=== PATIENT | male | born 1950 ===

== ENCOUNTER 2018-09-01 05:59 | Day surgery (SDC) | payer OTHER, SELFPAY ==
[2018-08-23 12:39] VITALS: BMI 36.1
[2018-09-01] VITALS (8 sets, daily range): BP systolic 103–143; BP diastolic 54–80; PULSE 63–70; RESP 10–20; TEMP 36–36.8; O2SAT 90–95; BMI 36.3
[2018-09-01] MEDS: LACTATED RINGERS 1,000 ML 42 ML IV ×2 (07:25→09:52)
--- NOTE | 2018-09-01 07:39 | PM.PREOP ---
Pre-operative Note Interval Note History & Physical reviewed/Exam performed by Physician: Yes Changes to H&P: No
[2018-09-01] MEDS: CEFAZOLIN 2 GM/100 ML FROZ.PIGGY IV (07:50)
--- NOTE | 2018-09-01 08:45 | SUR.OPER ---
Beach chair with Maquet shoulder positioner on Skytron bed. Lower body on padded OR bed. Head in foam padded head cradle, secured with straps. Non-operative arm secured <90 degrees abduction. Pillow under knees. Safety belt at thigh. Cloth tape over blanket over lower legs.
--- NOTE | 2018-09-01 08:55 | PM.PROC.1 ---
Procedures Date/Time Date of procedure: 09/01/18 Time of procedure: 07:46 General Procedure description: Ultrasound guided interscalene brachial plexus nerve block for post op pain control after Left shoulder RCR by Dr. Bennett. Procedure done under general anesthesia due to severe right sided Parkinsonian tremors causing motion. Risk and benefits of procedure discussed with patient. ASA monitoring applied to patient, general anesthesia induction. 100% 02 given via ETT. Skin site was prepped with chlorhexidine and allowed to fully dry. Sterile gloves, mask, hat and probe cover were used to maintain sterility. Under ultrasound guidance, a 21ga 50mm Pajunk needle was directed into the interscalene groove (middle/anterior scalenes) near the brachial plexus. After negative aspiration, 20 mL 0.5% ropivicaine and 10mg dexamethasone were injected around brachial plexus .
[2018-09-01] MEDS: BUPIVACAINE 0.5% W/ EPI (PF) VIAL 30 ML INJ (09:01)
[2018-09-01] MEDS: SODIUM CHLORIDE IRRIG SOLUTION 3,000 ML, EPINEPHrine 1 MG IRR (09:02)
--- NOTE | 2018-09-01 09:45 | SUR.OPER ---
Patient's Deep Brain Stimulator turned off before incision at 0807 by anesthesia. It was turned back on at 0943 by anesthesia after the caurtery was unplugged from the cautery machine.
--- NOTE | 2018-09-01 10:29 | P.OP_ITS ---
Operative Date/Time/Diagnoses Date of procedure: 09/01/18 Time of procedure: 08:30 Pre-op diagnosis: Massive rotator cuff tear involving left shoulder Post-op diagnosis: same Procedure & Clinicians Procedure: Arthroscopic debridement of the glenohumeral joint Arthroscopic subacromial decompression and debridement of the subacromial and subdeltoid space Open rotator cuff repair of the subscapularis, supraspinatus, infraspinatus. Same procedure as scheduled: Yes Indications: Massive rotator cuff tear left shoulder Surgeon: [facility] Corporate Account Director: Afshan Gambino Anesthesia Type: General and Peripheral nerve block Operative Notes Findings: Complete tear and retraction of the supraspinatus, infraspinatus, and subscapularis. 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 Previous suture material from repair from many years ago. Some loose bodies anterior to the glenohumeral joint. Degenerative changes to the labrum as well as signs of a previous complete rupture of the biceps tendons. Closure Type: primary Specimen(s): none sent Prosthetic devices, grafts, tissues, transplants, or devices: Speed bridge fixation anchors for the supraspinatus and infraspinatus. Single SwiveLock anchor for the subscapularis Applied: implant(s) Estimated Blood Loss (mL): 5 Blood products transfused: none Procedure in detail: On date of service, Patient was met in the holding area. The operative site was signed and witnessed by the OR staff. The surgeries once again discussed with the patient and any remaining questions they had were answered fully. Patient was taken back to the operating theater and placed on the operating table in a supine position. Great care was taken to ensure that all bony prominences were properly padded. Patient was then placed into the beach chair position. The head and neck were properly positioned and secured. A timeout was performed verifying patient's name, procedure, and the operative site. The upper extremity was then prepped and draped in the normal sterile fashion. Previously, the bony anatomy and portal sites were marked out as well as injected with Marcaine with epinephrine. An 11 blade was used to make an incision in the posterior aspect of the shoulder. The camera was placed, and a diagnostic shoulder scope was performed. Findings listed above. Next under direct visualization, a anterior portal was made. Shaver was brought in and extensive debridement of the glenohumeral joint was performed. Patient had significant amount of degenerative changes to the labral tissue as well as signs of a previous biceps rupture. The residual tissue of the biceps tendon was debrided with a shaver. Once all the degenerative tissue in the glenohumeral joint was removed we then turned our attention to the subacromial space. Next the camera was placed into the subacromial space. A lateral portal was obtained under direct visualization. A combination of the shaver and vapor wand, a debridement of the inflamed tissue as well as inflamed bursa was performed. The lateral gutter was also cleaned out. This gave us good visualization of the bursal aspect of the rotator cuff as well as the acromial arch. As mentioned above, patient had complete tear of the supraspinatus and infraspinatus. The torn edge of the rotator cuff showed quite a bit of degenerative changes but the remaining rotator cuff tissue was still quite robust and healthy. Also both the supraspinatus and infraspinatus had very good excursion to the rotator cuff footprint. Patient also had a complete tear of his subscapularis. Shaver was used to completely debride the bursal tissue of the subacromial and subdeltoid space. A 5.5 bur was used to do a subacromial decompression. Due to the subs capularis tear it was decided at this point to convert to an open procedure. Patient had a previous incision from a rotator cuff repair from about 30 years ago. The same incision was used. Ten blade was used to incise through skin and fascial tissue. Much Juan was used to achieve hemostasis. Continued sharp dissection was performed until the deltoid fascia was visualized. We could see our opening into the deltoid from our anterior portal. This was extended both distally and proximally giving us good visualization of the humeral head as well as the subacromial space. Using a Mayo elevator the rotator cuff was freed of any adhesions both articular sided as well as bursal sided. The degenerative portion was sharply excised using a 10 blade. Traction sutures were placed. Patient had A U shaped tear which was amenable to a [id number] repair. 2. FiberWire was used to do a [id number] repair converting the rather large rotator cuff tear to something smaller and more manageable. Next a speed bridge repair was done to repair both the supraspinatus and infraspinatus back to the rotator cuff footprint. Combination of the rongeur and bur were used to decorticate the rotator cuff footprint. Double row repair was performed of the supraspinatus and infraspinatus forming a secure repair as well as annie covering the humeral head which was previously almost completely exposed. We next turned our attention to subscapularis. Mayo elevator was used again to free up the tendon tissue from adhesions both bursal sided and articular sided. Once we had good excursion of the subscapularis fiber tape was passed in a horizontal mattress fashion and then was placed into a swivel lock anchor to secure the subscapularis back to the lesser tuberosity. Shoulder was taken through range of motion. Good overall repair and coverage of the rotator cuff and humeral head. Wound was copiously irrigated then closed in a layered fashion. Deltoid fascia was repaired using FiberWire. This gave a good solid repair of the split that was made in the deltoid fascia. Shoulder was cleaned dried dressed patient was extubated and taken to the PACU in stable condition. Complications: none Condition: stable Disposition: PACU Plan for aftercare: Patient will follow our postoperative protocol for massive rotator cuff repair
--- NOTE | 2018-09-01 10:42 | SUR.PHASEI ---
Pt arrived to PACU, gradually awakened, no pain no nausea. L karlene swollen, Dr. Keenan in to see pt, no new orders, dressing reinforced with 2x2 and tegaderm to L side.
== END 2018-09-01 12:00 | disposition home or self-care (01) ==
PROVIDERS: PCP Family Medicine; Visit Provider Orthopaedic Surgery
PROC: (CPT 29827; principal; 2018-09-01 07:45)
PROC: (CPT 29827; 2018-09-01 07:45)
DX: S46.012A Strain of muscle(s) and tendon(s) of the rotator cuff of left shoulder, initial encounter (principal); M19.012 Primary osteoarthritis, left shoulder; W19.XXXA Unspecified fall, initial encounter; G47.30 Sleep apnea, unspecified; G20 Parkinson's disease; E66.9 Obesity, unspecified; I10 Essential (primary) hypertension; E11.9 Type 2 diabetes mellitus without complications; Z79.84 Long term (current) use of oral hypoglycemic drugs; Z68.35 Body mass index [BMI] 35.0-35.9, adult
CPT/HCPCS: 29827; 29823; 29826; J0171; J0690; J1100; J2250; J2405; J2704; J2795; J3010